=== PATIENT | male | born 1985 | race Caucasian/White ===

== ENCOUNTER 2017-02-09 09:58 | Emergency (ER) | payer MEDICARE ==
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
[~2017-02-09 09:58] MED LIST: AUGMENTIN; BACTRIM DS TABL1 TA1; CLEOCIN HCL300 M1 PO; HYDROCODON-ACE1 EAC7; NO MEDICATIONS
== END 2017-02-09 11:08 | disposition home or self-care (01) ==
LOC: SED 09:58
DX: R05 Cough (principal); F17.200 Nicotine dependence, unspecified, uncomplicated
CPT/HCPCS: 71020; 99283